=== PATIENT | female | born 1995 | race Caucasian/White ===

== ENCOUNTER 2016-07-21 15:10 | Emergency (ER) | payer OTHER ==
[2016-07-21 15:19] VITALS: BP 107/63; PULSE 76; RESP 16; TEMP 98.4; O2SAT 98
--- NOTE | 2016-07-21 16:26 | EDPHY ---
H & P Time Seen by Provider: 07/21/16 16:16 HPI/ROS: CHIEF COMPLAINT: Sore throat HISTORY OF PRESENT ILLNESS: Patient developed sore throat last week and with swollen tonsils and a stuffy nose and some nasal congestion. She feels better now in her symptoms are slowly resolving. She does not have trouble breathing or swallowing. No earache although she had some ear fullness bilaterally last weekend. No neck pain or trouble moving her head. No headache. No dental symptoms. REVIEW OF SYSTEMS: Roommate was diagnosed with mononucleosis 6 days ago. No abdominal pain. PAST MEDICAL HISTORY: Negative Social history: Roommate as above General Appearance: Alert and conversant, cooperative. Normal tympanic membranes. No facial swelling or tenderness. No trismus and no pharyngeal erythema or exudate. No stridor or drooling or respiratory distress. No submandibular or or cervical lymphadenopathy. No abdominal tenderness or splenomegaly. Emergency Department course/MDM: Patient symptoms are really improving. Exam does not show evidence of bacterial infection. Plan for testing for mononucleosis, she is discharged and given warnings and precautions should she be positive and she can call for the results later. Mora negative at 1920. Smoking Status: Never smoked Constitutional: Initial Vital Signs Temperature (C) 36.9 C 07/21/16 15:15 Heart Rate 76 07/21/16 15:15 Respiratory Rate 16 07/21/16 15:15 Blood Pressure 107/63 07/21/16 15:15 O2 Sat (%) 98 07/21/16 15:15 O2 Delivery Mode Room Air Allergies/Adverse Reactions: No Known Allergies Allergy (Unverified 12/29/15 13:55) Home Medications: Medication Instructions Recorded Control 12/29/15 MDM/Departure - Depart Disposition: Home, Routine, Self-Care Clinical Impression: Acute pharyngitis Condition: Good Instructions: Pharyngitis (ED) Additional Instructions: Call [phone] in 2-3 hours for results of mono test. If positive, please follow up with ENT in 2-3 weeks. If positive, no that you can be contagious with oral/saliva contact; and no contact sports or recreation until cleared by follow-up physician. Referrals: Gab Queen MD [Medical Doctor] - As per Instructions (ENT referral if worsening symptoms)
== END 2016-07-21 16:34 | disposition home or self-care (01) ==
DX: J02.9 Acute pharyngitis, unspecified (principal)